=== PATIENT | female | born 1990 | race African-American/Black ===

== ENCOUNTER 2017-02-07 17:34 | Emergency (ER) | payer MEDICAID ==
[~2017-02-07] VITALS: Ht 162.6 cm; Wt 51.2 kg
[2017-02-07 19:17] VITALS: BP 113/62
== END 2017-02-07 19:17 | disposition home or self-care (01) ==
LOC: ED 17:34
DX: N39.0 Urinary tract infection, site not specified (principal)

== ENCOUNTER 2017-03-26 09:06 | Emergency (ER) | payer MEDICAID ==
[~2017-03-26] VITALS: Ht 162.6 cm; Wt 50.8 kg
[2017-03-26 09:11] VITALS: Ht 162.6 cm; Wt 50.8 kg
[2017-03-26 10:24] LABS: BASOPHIL % 0.2 % (0-2); CALCIUM 8.8 mg/dL (8.5-10.1); CARBON DIOXIDE 25.5 mmol/L (21-32); CHLORIDE SERUM 100 mmol/L (98-107); CREATININE SERUM 0.9 mg/dL (0.6-1.0); GFR1 > 60 mL/min; GLUCOSE SERUM 102 mg/dL (74-106); PLATELET COUNT 267 x10^3mcL (130-400); POTASSIUM SERUM 3.2 mmol/L (3.5-5.1); RED CELL DISTRIBUTION WIDTH 12.3 % (11.5-14.5); SODIUM SERUM 137 mmol/L (136-145)
[2017-03-26 10:28] LABS: ALBUMIN 3.9 g/dL (3.4-5.0); ALKALINE PHOSPHATASE 80 U/L (46-116); ALT/SGPT 17 U/L (14-59); AMYLASE 76 U/L (25-115); AST/SGOT 15 U/L (15-37); BILIRUBIN TOTAL 0.53 mg/dL (0.20-1.00); LIPASE 113 IU/L (73-393); TOTAL PROTEIN, SERUM 8.1 g/dL (6.4-8.2)
[2017-03-26 10:44] LABS: UA SPECIFIC GRAVITY >=1.030 (1.005-1.035); microscopic required? YES; urine erythrocyte 3+ (NEGATIVE)
[2017-03-26 12:06] VITALS: BP 118/93
== END 2017-03-26 12:06 | disposition home or self-care (01) ==
LOC: ED 09:06
PROVIDERS: Emergency Medicine
DX: N10 Acute pyelonephritis (principal); N76.0 Acute vaginitis; B96.89 Other specified bacterial agents as the cause of diseases classified elsewhere
CPT/HCPCS: 83880; 87491; 87591; J0696; J1885; J3490; J7030

== ENCOUNTER 2018-06-01 15:08 | Emergency (ER) | payer MEDICAID ==
[~2018-06-01] VITALS: Ht 162.6 cm; Wt 51.5 kg
[2018-06-01 15:11] VITALS: Ht 162.6 cm; Wt 51.5 kg
[2018-06-01 15:57] LABS: microscopic required? YES; urine erythrocyte 2+ (NEGATIVE)
[2018-06-01 16:15] VITALS: BP 91/72
== END 2018-06-01 16:46 | disposition home or self-care (01) ==
LOC: ED 15:08
PROVIDERS: Emergency Medicine
DX: N12 Tubulo-interstitial nephritis, not specified as acute or chronic (principal); R07.89 Other chest pain; Z98.890 Other specified postprocedural states